=== PATIENT | female | born 1975 | race Two or more races ===

== ENCOUNTER → 2020-11-16 16:22 | Outpatient (CLI) | payer OTHER | END | disposition home or self-care (01) | LOC: PPH VACUNA 16:22 | DX: Z23 Encounter for immunization (principal) ==

== ENCOUNTER 2020-12-07 08:00 | Outpatient (CLI) | payer OTHER | END 2020-12-07 08:30 | disposition home or self-care (01) | LOC: PPH VACUNA 08:00 | DX: Z23 Encounter for immunization (principal) ==